=== PATIENT | male | born 1995 | race African-American/Black ===

== ENCOUNTER 2018-04-12 22:14 | Emergency (ER) | payer SELFPAY, OTHER | END 2018-04-13 00:43 | disposition home or self-care (01) | LOC: ER 22:14 | DX: S06.9X1A Unspecified intracranial injury with loss of consciousness of 30 minutes or less, initial encounter (principal); S03.2XXA Dislocation of tooth, initial encounter; W50.0XXA Accidental hit or strike by another person, initial encounter; Y93.67 Activity, basketball; Y99.8 Other external cause status; Y92.89 Other specified places as the place of occurrence of the external cause | CPT/HCPCS: 70450; 93005; 99284-25 ==

== ENCOUNTER 2019-09-08 20:33 | Emergency (ER) | payer SELFPAY ==
[~2019-09-08] VITALS: Ht 170.2 cm; Wt 81.6 kg
[2019-09-08] MEDS ORDERED: HYDROcodone/APAP 5/325MG 1 TAB TABLET PO ONE (21:15)
--- NOTE | 2019-09-08 22:05 | RAD ---
CT HEAD AND MAXILLOFACIAL WO dated 09/08/2019 9:12 PM Indication: Pain after injury. Left eyelid laceration...Pain Comparison: No comparison is available. Technique: Contiguous axial imaging the head was performed from skull base to vertex. In addition, axial imaging the maxillofacial bones obtained with thin cut coronal and sagittal reconstruction. One or more of the following individualized dose reduction techniques were utilized for this examination: 1. Automated exposure control 2. Adjustment of the mA and/or kV according to patient size 3. Use of iterative reconstruction technique Findings: Ventricles and sulci are within normal limits for age. No midline shift or mass effect. Patchy low density in the deep/subcortical periventricular white matter. No hemorrhage or extra-axial collection. Posterior fossa and brainstem unremarkable. No apparent calvarial abnormality. Images of the maxillofacial bones show a medial orbital blowout fracture on the left with depression of the left lamina paprechya. The medial rectus muscle approaches the fracture defect but does not definitely extend into the fracture defect. There is gas density in the extraconal fat and soft tissues anterior to the left orbital floor. The globes are symmetric. Prominent soft tissue swelling on the left. No definite fracture of the left orbital floor or zaidi of left maxillary sinus. The left zygomatic arch is intact. Mandible is intact. There is a comminuted fracture of the left nasal bone with mild displacement at the base. There is also comminuted fracture of the right nasal bone. Small mucous retention cyst of the bilateral maxillary sinus and left sphenoid sinus. Partial opacification of the left-sided ethmoid air cells and right sphenoid sinus. Mastoid air cells are clear. No additional bony or soft tissue abnormality. Cervical spine unremarkable. IMPRESSION: 1. No evidence of acute intracranial hemorrhage or mass. 2. Comminuted fracture of the medial orbital wall on the left with depression of the left lamina paprechya. No definite evidence for extraocular muscle entrapment, although this should be correlated clinically. 3. Comminuted fracture of the bilateral nasal bone. 4. Soft tissue swelling and soft tissue gas with paranasal sinus opacification as described. Electronically signed by: Jones Vernon MD (09/08/2019 10:02 PM) [facility]
[2019-09-09 00:12] VITALS: BP 126/58
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
== END 2019-09-09 00:50 | disposition short-term general hospital (02) ==
LOC: ER 20:33
DX: S02.30XA Fracture of orbital floor, unspecified side, initial encounter for closed fracture (principal); S02.2XXA Fracture of nasal bones, initial encounter for closed fracture; S01.112A Laceration without foreign body of left eyelid and periocular area, initial encounter; Y08.89XA Assault by other specified means, initial encounter; F12.90 Cannabis use, unspecified, uncomplicated; Y93.89 Activity, other specified; Y92.099 Unspecified place in other non-institutional residence as the place of occurrence of the external cause; Y99.9 Unspecified external cause status
CPT/HCPCS: 70450; 70486; 99285